=== PATIENT | female | born 2000 | race Caucasian/White ===

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

== ENCOUNTER 2022-03-14 14:06 | Emergency (ER) | payer OTHER ==
[2022-03-14] MEDS ORDERED: traMADol 50 MG STARTER PACK 3 TAB BTL PO STA (16:07)
--- NOTE | 2022-03-14 16:08 | ED ---
General Adult HPI - General Chief complaint: ENT Stated complaint: Mouth injury Time Seen by Provider: 03/14/22 15:40 Source: patient, RN notes reviewed Mode of arrival: ambulatory Limitations: no limitations - History of Present Illness Initial comments: Patient is a pleasant 21-year-old female presenting to the emergency department with concern with scratch to the top of her mouth. Incident occurred 2 days ago. Patient was eating hard boiled eggs and got something stuck. Patient did use her fork and scratched the top of her mouth. Patient has had discomfort since that time. There may be slight improvement. No other area of injury or concern. Patient states her teeth themselves do not hurt. - Related Data Home Medications Medication Instructions Recorded Confirmed Baclofen 5 mg PO ONCE 01/18/19 01/18/19 Omeprazole 40 mg PO ONCE 01/18/19 01/18/19 Previous Rx's Medication Instructions Recorded Sulfamethox-Tmp 800-160Mg [Bactrim 1 each PO Q12HR #14 tab 01/18/19 Ds] Amoxicillin 875 mg PO Q12HR #20 tablet 06/28/19 Cephalexin [Keflex] 500 mg PO Q6HR 10 Days #40 cap 06/18/20 Sulfamethox-Tmp 800-160Mg [Bactrim 1 tab PO Q12HR 10 Days #20 tab 06/18/20 DS 800-160 mg] Amoxicillin 500 mg PO Q8H #21 capsule 03/14/22 Allergies Allergy/AdvReac Type Severity Reaction Status Date / Time No Known Allergies Allergy Verified 06/18/20 20:50 Review of Systems ROS Statement: Those systems with pertinent positive or pertinent negative responses have been documented in the HPI. ROS Other: All systems not noted in ROS Statement are negative. Constitutional: Denies: fever, chills Eyes: Denies: eye pain ENT: Reports: as per HPI Respiratory: Denies: cough, dyspnea Cardiovascular: Denies: palpitations Endocrine: Denies: fatigue Gastrointestinal: Denies: abdominal pain Genitourinary: Denies: dysuria Past Medical History Past Medical History: No Reported History History of Any Multi-Drug Resistant Organisms: None Reported Past Surgical History: No Surgical Hx Reported Past Psychological History: No Psychological Hx Reported Smoking Status: Never smoker Past Alcohol Use History: None Reported Past Drug Use History: None Reported General Exam Limitations: no limitations General appearance: alert, in no apparent distress Head exam: Present: atraumatic Eye exam: Present: normal appearance ENT exam: Present: other (Patient does have approximately 2 cm abrasion to the left side of the hard palate. Otherwise no swelling or erythema.) Neck exam: Present: normal inspection Respiratory exam: Present: normal lung sounds bilaterally Cardiovascular Exam: Present: regular rate, normal rhythm Neurological exam: Present: normal gait Psychiatric exam: Present: normal affect, normal mood Skin exam: Present: normal color Disposition Clinical Impression: Abrasion of oral cavity Disposition: HOME SELF-CARE Condition: Stable Instructions (If sedation given, give patient instructions): Abrasion (ED) Additional Instructions: Every 2 hours perform salt water rinse and spit. Please follow-up with primary care physician in the next couple days for recheck. Return for increased pain, swelling, difficult to breathing, not tolerating fluids, worsening symptoms or other concerns. Prescription has been sent to pharmacy. Prescriptions: Amoxicillin 500 mg PO Q8H #21 capsule Is patient prescribed a controlled substance at d/c from ED?: No Referrals: Bridgette Collado MD [Primary Care Provider] - 1-2 days Time of Disposition: 16:06
[2022-03-14 16:29] VITALS: BP 135/88; PULSE 78; RESP 16; TEMP 98.2
== END 2022-03-14 16:45 | disposition home or self-care (01) ==
LOC: EC 14:06
DX: S00.512A Abrasion of oral cavity, initial encounter (principal); W26.8XXA Contact with other sharp object(s), not elsewhere classified, initial encounter
CPT/HCPCS: 99283

== ENCOUNTER 2022-03-15 23:56 | Emergency (ER) | payer OTHER ==
[2022-03-16 00:08] VITALS: BP 130/84; PULSE 100; RESP 20; TEMP 98.8
[2022-03-16] MEDS ORDERED: SODIUM CHLORIDE 0.9% 1,000 ML IV STA (01:47)
[2022-03-16] MEDS ORDERED: diphenhydrAMINE 50 MG/ML 1 ML VIAL IVP STA (01:47)
[2022-03-16] MEDS ORDERED: KETOROLAC 15 MG/ML 1 ML VIAL IVP STA ×2 (01:47→04:59)
--- NOTE | 2022-03-16 01:52 | ED ---
General Adult HPI - General Chief complaint: Headache Stated complaint: Headache Time Seen by Provider: 03/16/22 01:40 Source: patient, family (sister), RN notes reviewed, old records reviewed Mode of arrival: ambulatory Limitations: no limitations - History of Present Illness Initial comments: 21-year-old female presents to the emergency room with her sister complaining of left-sided headache for the past 2 days. Patient states that the headache occurred when she was talking to her counselor 2 days ago. She has not taken any Tylenol or Motrin. She has not had headaches like this in the past. She denies any fevers, no nausea vomiting or diarrhea. No visual changes -: days(s) (2) Location: head (left sided) Radiation: non-radiation Severity scale (1-10): 10 Quality: aching, constant Consistency: constant Improves with: none Worsens with: none Associated Symptoms: denies other symptoms Treatments Prior to Arrival: none - Related Data Home Medications Medication Instructions Recorded Confirmed Baclofen 5 mg PO ONCE 01/18/19 01/18/19 Omeprazole 40 mg PO ONCE 01/18/19 01/18/19 Previous Rx's Medication Instructions Recorded Sulfamethox-Tmp 800-160Mg [Bactrim 1 each PO Q12HR #14 tab 01/18/19 Ds] Amoxicillin 875 mg PO Q12HR #20 tablet 06/28/19 Cephalexin [Keflex] 500 mg PO Q6HR 10 Days #40 cap 06/18/20 Sulfamethox-Tmp 800-160Mg [Bactrim 1 tab PO Q12HR 10 Days #20 tab 06/18/20 DS 800-160 mg] Amoxicillin 500 mg PO Q8H #21 capsule 03/14/22 Allergies Allergy/AdvReac Type Severity Reaction Status Date / Time No Known Allergies Allergy Verified 03/16/22 00:08 Review of Systems ROS Statement: Those systems with pertinent positive or pertinent negative responses have been documented in the HPI. ROS Other: All systems not noted in ROS Statement are negative. Past Medical History Past Medical History: No Reported History History of Any Multi-Drug Resistant Organisms: None Reported Past Surgical History: No Surgical Hx Reported Past Psychological History: Anxiety, Depression Smoking Status: Never smoker Past Alcohol Use History: None Reported Past Drug Use History: None Reported General Exam Limitations: no limitations General appearance: alert, in no apparent distress Head exam: Present: atraumatic, normocephalic, normal inspection Eye exam: Present: normal appearance, PERRL, EOMI. Absent: scleral icterus, conjunctival injection, nystagmus, periorbital swelling, periorbital tenderness Pupils: Present: normal accommodation ENT exam: Present: normal exam, normal oropharynx, mucous membranes moist Neck exam: Present: normal inspection, tenderness, full ROM. Absent: meningismus, lymphadenopathy Respiratory exam: Present: normal lung sounds bilaterally. Absent: respiratory distress, accessory muscle use Cardiovascular Exam: Present: regular rate, normal rhythm, normal heart sounds GI/Abdominal exam: Present: soft. Absent: distended, tenderness Neurological exam: Present: alert, oriented X3, CN II-XII intact Expanded Patient oriented to: Present: person, place, time Speech: Present: fluid speech Eye Response: (4) open spontaneously Motor Response: (6) obeys commands Verbal Response: (5) oriented Brandin Total: 15 Psychiatric exam: Present: normal affect, normal mood Skin exam: Present: warm, dry, normal color. Absent: cyanosis, diaphoretic, petechiae, pallor Course Vital Signs 03/16/22 00:05 Temperature 98.8 F Pulse Rate 100 Respiratory 20 Rate Blood Pressure 130/84 O2 Sat by Pulse 97 Oximetry Medical Decision Making - Medical Decision Making 21-year-old female presents tearful with complaints of left-sided headache for 2 days. She denies any visual disturbances. No fevers. No focal neurological deficits. She was given IV fluids, Toradol and Benadryl with relief of her headache. She was directed to follow up with her primary care doctor next week, Tylenol and or Motrin as needed for pain. Patient and her sister are agreeable to this plan of care. Case discussed with Dr. Marina Disposition Clinical Impression: Headache Disposition: HOME SELF-CARE Condition: Good Instructions (If sedation given, give patient instructions): Acute Headache (ED) Additional Instructions: Take Tylenol and/or Motrin as needed for headaches. You can also try Benadryl 25-50 mg every 6-8 hours. Increase your fluid intake and follow-up with your primary care doctor next week. Return to the emergency room with any new or concerning symptoms including vision changes, fevers or persistent nausea vomiting. Is patient prescribed a controlled substance at d/c from ED?: No Referrals: Bridgette Collado MD [Primary Care Provider] - 1-2 days
[2022-03-16 04:41] LABS: Amorphous Sediment,Urine Occasional /hpf; Appearance,Urine Cloudy (Clear); Bilirubin,Urine Negative (Negative); Blood,Urine Large (Negative); Color,Urine Red; Glucose,Urine (UA) Negative (Negative); Hyaline Casts,Urine 15 /lpf (0-2); Ketones,Urine Negative (Negative); Leukocyte Esterase,Urine Large (Negative); Mucus,Urine Rare /hpf; Nitrite,Urine Negative (Negative); Protein,Urine 1+ (Negative); RBC,Urine >182 /hpf (0-5); Specific Gravity,Urine 1.017 (1.001-1.035); Squamous Epithelial Cell,Urine 9 /hpf (0-4); Urobilinogen,Urine <2.0 mg/dL (<2.0); WBC,Urine >182 /hpf (0-5)
[2022-03-16] MEDS ORDERED: SULFAMETHOX-TMP 800-160MG 1 EACH TAB PO STA (04:51)
[2022-03-18 14:46] LABS: C. trachomatis,PCR Negative (Neg,Equiv); Chlamydia trachomatis Source Urine; N. gonorrhoeae,PCR Negative (Neg,Equiv); Neisseria Source Urine
== END 2022-03-16 05:19 | disposition home or self-care (01) ==
LOC: EC 23:56
DX: R51.9 Headache, unspecified (principal)
CPT/HCPCS: 81001; 81025; 87491; 87591; 87086; 99284; 96374; 96375; 96376; 96361; J1200; J1885

== ENCOUNTER → 2022-06-14 | Outpatient (CLI) | payer OTHER ==
--- NOTE | 2022-06-15 11:42 | XR ---
Lumbar spine and thoracic spine HISTORY: M 25.69, pain 3 views of the lumbar spine and 3 views of the thoracic spine Bone mineralization, joint spaces and alignment are maintained. 6 nonrib-bearing vertebral bodies are present. Suspect is lumbarized S1. Some loss of disc height is present at S1-S2. Thoracic and lumba r vertebral bodies show preserved height. There is a slight spinal curvature in the thoracic spine. IMPRESSION: Mild spinal curvature. Loss of disc height as described may be indicative of degenerative disc disease, MRI may be of benefit.
--- NOTE | 2022-06-15 11:44 | XR ---
Right hip HISTORY: Pain 2 views of the right hand Bone mineralization, joint spaces and alignment are maintained IMPRESSION:
== END | disposition home or self-care (01) ==
LOC: RADXRMAIN 15:32
PROVIDERS: ATTEND Family Medicine
DX: M51.36 Other intervertebral disc degeneration, lumbar region (principal); M25.69 Stiffness of other specified joint, not elsewhere classified; R29.3 Abnormal posture
CPT/HCPCS: 72070; 72100; 73502

== ENCOUNTER → 2022-07-19 | Outpatient (CLI) | payer OTHER ==
--- NOTE | 2022-07-19 08:43 | MR ---
EXAMINATION TYPE: MR lumbar spine wo con DATE OF EXAM: 07/19/2022 COMPARISON: Lumbar spine x-ray June 14, 2022 HISTORY: Mid low back pain into buttocks and thighs. Scoliosis. TECHNIQUE: Multiplanar, multisequence imaging of the lumbar spine is performed without IV contrast. FINDINGS: Plain film correlation shows transitional L6 type vertebra. Sagittal images of the lumbar s pine show vertebral body heights and alignment to appear satisfactory. The intervertebral discs demon strate normal heights and hydration. The conus medullaris is normal in position and signal ending mi d L1 level. The bone marrow signal intensity is within normal limits. Axial images show no focal significant disc herniation or facet degenerative change at any lumbar lev el. There is no spinal canal stenosis, neural foraminal narrowing, or evidence of nerve root comprom ise. Paraspinal muscle bulk is maintained. IMPRESSION: Transitional-type vertebra at lumbosacral junction which is normal variant. No significan t disc herniation. No spondylolisthesis or scoliosis identified.
== END | disposition home or self-care (01) ==
LOC: RADMRIMAIN 07:02
PROVIDERS: ATTEND Family Medicine
DX: M51.9 Unspecified thoracic, thoracolumbar and lumbosacral intervertebral disc disorder (principal); M43.9 Deforming dorsopathy, unspecified
CPT/HCPCS: 72148

== ENCOUNTER → 2022-11-20 | Outpatient (CLI) | payer OTHER ==
--- NOTE | 2022-11-20 15:38 | US ---
EXAMINATION TYPE: US thyroid st tissue head/neck DATE OF EXAM: 11/20/2022 COMPARISON: NONE CLINICAL HISTORY: R22.1 NECK FULLNESS. doctor felt fullness in neck GLAND SIZE: Right Lobe: 4.1 x 1.3 x 1.7 cm Overall Parenchyma: homogenous Left Lobe: 5.0 x 1.3 x 1.3 cm Overall Parenchyma: homogeneous Isthmus Thickness: 0.2 cm NODULES RIGHT: # of nodules measured on right: 0 LEFT: # of nodules measured on left: 0 ISTHMUS: # of nodules measured in the isthmus: 0 Bilateral neck scanned, no evidence of lymphadenopathy. IMPRESSION: No discrete abnormality appreciated. 2017 ACR TI-RADS LEVEL: *Highest TI-RADS level nodule reported
== END | disposition home or self-care (01) ==
LOC: RADUSWWP 13:51
PROVIDERS: ATTEND Family Medicine
DX: E04.1 Nontoxic single thyroid nodule (principal)
CPT/HCPCS: 76536

== ENCOUNTER → 2023-04-11 | Outpatient (CLI) | payer OTHER ==
--- NOTE | 2023-04-11 15:51 | XR ---
EXAMINATION TYPE: XR chest 2V DATE OF EXAM: 04/11/2023 COMPARISON: NONE HISTORY: Chest pain TECHNIQUE: Frontal and lateral views of the chest are obtained. FINDINGS: There is no focal air space opacity. No evidence for pneumothorax. No pleural effusion. The cardiac silhouette size is within normal limits. The osseous structures are grossly intact. IMPRESSION: 1. No acute cardiopulmonary process.
== END | disposition home or self-care (01) ==
LOC: RADXRMAIN 14:03
PROVIDERS: ATTEND Family Medicine
DX: R07.89 Other chest pain (principal)
CPT/HCPCS: 71046

== ENCOUNTER → 2023-04-25 | Outpatient (CLI) | payer OTHER ==
--- NOTE | 2023-04-25 14:02 | USB ---
Technique: Method: Whole Breast Handheld. Findings: The whole breast of the left breast, the axilla of the left breast and the retroareolar of the left breast were scanned. Imaged: Ultrasound imaging of: All 4 quadrants, the retroareolar region and axilla. No finding to correlate patient's pain. No evidence for organizing fluid collection or mass. Overall Assessment: Negative, BI-RAD 1 Management: Screening Mammogram of both breasts at age 42. A clinical breast exam by your physician is recommended on an annual basis and results should be correlated with mammographic findings. This exam should not preclude additional follow-up of suspicious palpable abnormalities. Results were given to the patient verbally at the time of exam. Electronically signed and approved by: Keyur Rogers DO
== END | disposition home or self-care (01) ==
LOC: RADUSWWP 12:34
PROVIDERS: ATTEND Family Medicine
DX: N64.4 Mastodynia (principal)

== ENCOUNTER → 2023-11-14 | Outpatient (CLI) | payer OTHER ==
--- NOTE | 2023-11-25 14:26 | USB ---
Reason for Exam: Clinical finding. Technique: Method: Targeted. Findings: The lower section of the breast of the left breast, the axilla of the left breast and the retroareolar of the left breast were scanned. Targeted ultrasound inferior left breast 5:00 to 7:00 including scanning of the subareolar region and axilla. Patient's 6:00 palpable site, no solid or cystic lesion. Some scattered dense tissue is present. There is no axillary lymphadenopathy or duct ectasia.. Overall Assessment: Negative, BI-RAD 1 Management: Screening Mammogram of both breasts at age 42. Unless there is an indication to start sooner. Further clinical management of any suspicious palpable areas. A clinical breast exam by your physician is recommended on an annual basis and results should be correlated with mammographic findings. This exam should not preclude additional follow-up of suspicious palpable abnormalities. Results were given to the patient verbally at the time of exam. Electronically signed and approved by: Sj Leos M.D. Radiologist
== END | disposition home or self-care (01) ==
LOC: RADUSWWP 12:11
PROVIDERS: ATTEND Family Medicine
DX: N64.4 Mastodynia (principal)

== ENCOUNTER → 2023-12-18 | Outpatient (CLI) | payer OTHER ==
--- NOTE | 2023-12-18 12:05 | P.GSCN ---
History of Present Illness Consult date: 12/18/23 Reason for Consult: left breast pain Requesting physician: Bridgette Collado History of present illness: Mary is a 23 year old female with a complaint of breast pain. She had a left breast ultrasound on 11-14-23 which was BIRAD 1. She was complaining of pain in her left breast. It is located inferior to the aerola. It is painful with palpation. It is 3 on a scale of 1-10. It is not constant. It does not affect her daily living. She does feel some fullness in the area of the pain. It does not change with her period. She had not had any surgery on her breast. She not complaining of any nipple discharge or skin changes. She has not noted any recent trauma or infection in her breast. Caffeine: diet coke daily nicotine: none chocolate: daily BCP: none hormones: none Family History: maternal aunt: breast cancer maternal grandmother: cancer ? type mother: ovarian cancer Hormonal History: menarche: 14 G0 not sexually active periods irregular Surgical History: none Medical History: Scoliosis and degenerative disc disease Social History: Nicotine: Negative Alcohol: Negative Drugs: Negative Review of Systems - Constitutional Denies fever, Denies weight loss - EENT Eyes: denies blurred vision Ears: bilateral: tinnitus, deny: decreased hearing Ears, nose, mouth and throat: Reports headache, Denies dysphagia - Breasts bilateral: as per HPI - Cardiovascular Denies chest pain, Denies shortness of breath - Respiratory Denies cough, Denies 7 - Gastrointestinal Reports as per HPI - Genitourinary Genitourinary: Denies dysuria, Denies hematuria Menstruation: Reports cycle variable - Musculoskeletal Reports as per HPI - Integumentary Reports pruritus, Denies unusual bruising - Neurological Denies headaches, Denies syncope - Psychiatric Reports anxiety, Reports depression - Endocrine Reports as per HPI - Hematologic/Lymphatic Denies easy bleeding, Denies easy bruising - Allergic/Immunologic Reports as per HPI Past Medical History Past Medical History: No Reported History History of Any Multi-Drug Resistant Organisms: None Reported Past Surgical History: No Surgical Hx Reported - Sexual Orientation/Gender Identity What was your sex assigned at ?: Female Preferred Pronoun: She/Her/Hers How would you describe your gender identity?: Woman Do you think of your sexual orientation as: Bisexual Past Psychological History: Anxiety, Depression Smoking Status: Never smoker Past Alcohol Use History: None Reported Past Drug Use History: None Reported Medications and Allergies Home Medications Medication Instructions Recorded Confirmed Type No Known Home Medications 12/18/23 12/18/23 History Allergies Allergy/AdvReac Type Severity Reaction Status Date / Time No Known Allergies Allergy Unverified 12/18/23 12:01 Surgical - Exam - General moderate distress - Eyes normal ocular movement - Neck trachea midline - Respiratory normal respiratory effort, clear to auscultation - Cardiovascular Rhythm: regular Heart Sounds: normal: S1, S2 - Abdomen Abdomen: soft, non tender, no guarding, no rigid, no rebound - Integumentary normal turgor - Neurologic no disoriented, no combative - Musculoskeletal normal gait - Psychiatric oriented to time, oriented to person, oriented to place, speech is normal, memory intact Breast Exam: BRA: medium sports bra Inspection: bilateral grade 2 ptosis Palpation: right breast: Multi positional exam dense breast no dominant masses or nodules of concern Right axilla: Shotty adenopathy Left breast: Multi positional exam dense breast, at the 6 o'clock position near the areola there is some increased density which is not symmetric to the other side Left axilla: No adenopathy of concern Results Ultrasound results reviewed Assessment and Plan Assessment: Impression: Mastodynia greatest in the left breast Slight nodularity increased over that on the right side at the 6 o'clock position near the areola on the left Anxiety Plan: Recommend lifestyle modification/stop caffeine intake FNA area of nodularity left breast this will be scheduled in the near future book recommended /solving the mystery of breast pain bilateral mammogram at 42 CC: Dr. Norm Edge
[2023-12-18 12:11] VITALS: BP 129/91; PULSE 59; RESP 17; TEMP 98.3
== END ==
LOC: WWCWWP 10:38
PROVIDERS: ATTEND Surgery
DX: N64.4 Mastodynia (principal); F41.9 Anxiety disorder, unspecified

== ENCOUNTER → 2024-01-21 | Outpatient (CLI) | payer OTHER ==
--- NOTE | 2024-01-21 08:41 | P.CON ---
Consult Note - . Consult date: 01/21/24 Assessment/Plan:: Mary is a 23 year old female with some increased nodularity of the 6:00 position of the left breast, she is going to have an FNA of this site. Following informed consent, The area of concern at the 6 o'clock position of the left breast was prepped using alcohol A 22-gauge needle on a 12cc syringe was inserted into the area of concern and multiple passes were made with negative pressure on the syringe tissue was obtained the tissue was processed and sent to cytology The patient tolerated the procedure in stable condition. Plan: Follow-up 2 weeks
[2024-01-21 08:47] VITALS: BP 131/86; PULSE 97; RESP 17; TEMP 98.3
== END ==
LOC: WWCBREAST 08:14
PROVIDERS: ATTEND Surgery
DX: N63.25 Unspecified lump in the left breast, overlapping quadrants (principal)

== ENCOUNTER → 2024-02-12 | Outpatient (CLI) | payer OTHER ==
--- NOTE | 2024-02-12 13:26 | P.PN ---
Subjective Progress Note Date: 02/12/24 Principal diagnosis: fibrocystic breast changes Mary is a 23 year old status post left breast FNA on 01-21-24 at the 6 o'clock position of the left breast. Her pathology was benign. She tolerated the procedure without difficulty. She had been complaining of some increased nodularity at that site. Additionally an ultrasound of that area was performed on 11-14-2023 which was benign BI-RADS 1. Objective - Constitutional General appearance: Present: cooperative - EENT ENT: Present: hearing grossly normal - Respiratory Respiratory: bilateral: CTA - Cardiovascular Heart sounds: normal: S1, S2 - Integumentary Integumentary Comment(s): Biopsy site left breast no evidence of infection or hematoma, some mild resolving ecchymosis - Musculoskeletal Musculoskeletal: Present: gait normal - Psychiatric Psychiatric: Present: A&O x's 3, appropriate affect, intact judgment & insight Assessment and Plan Assessment: Impression: Fibrocystic breast changes Anxiety/we have reassured the patient on her visit today that radiographically nor physical exam or FNA showed anything of concern, however we will keep close surveillance, and if she notes anything of concern she should call us immediately Plan: Follow-up in 6 months with a left breast ultrasound Patient to follow-up sooner any questions or concerns CC: Agutso Mehta
[2024-02-12 13:58] VITALS: BP 128/88; PULSE 71; RESP 17; TEMP 97.9
== END ==
LOC: WWCWWP 12:27
PROVIDERS: ATTEND Surgery
DX: R92.8 Other abnormal and inconclusive findings on diagnostic imaging of breast (principal); N63.25 Unspecified lump in the left breast, overlapping quadrants; N60.19 Diffuse cystic mastopathy of unspecified breast; F41.9 Anxiety disorder, unspecified; Z98.890 Other specified postprocedural states

== ENCOUNTER 2024-06-07 06:41 | Day surgery (SDC) | payer OTHER ==
[2024-06-02 09:37] VITALS: BMI 22.5
[2024-06-07 07:13] VITALS: BP 146/73; PULSE 97; RESP 18; TEMP 98.1
[2024-06-07] MEDS: SODIUM CHLORIDE 0.9% 1,000 ML IV SCH (07:13)
[2024-06-07] MEDS: IV FLUID CONTINUATION 1,000 ML IV ONE (07:14)
--- NOTE | 2024-06-07 15:26 | P.EPPROC ---
- EP Procedure Note Electrophysiology Procedure Note: Diagnosis Recurrent syncope Baseline twelve-lead EKG shows sinus rhythm normal DE narrow QRS normal ST segments normal QT interval Subtle early repolarization abnormality of 0.5 mm, normal variant Tilt table test per protocol Baseline blood pressure 112/78 mmHg, baseline heart rate 60 beats a minute Patient was tilted upright from angle of 70 degrees per protocol No significant change in heart rate or blood pressure Patient was laid supine the end of the procedure Impression Normal twelve-lead EKG Normal heart rate and blood pressure response to upright tilting
== END 2024-06-07 10:18 | disposition home or self-care (01) ==
LOC: CATHEP 06:41
PROVIDERS: ATTEND Internal Medicine Clinical Cardiac Electrophysiology
DX: R55 Syncope and collapse (principal)
CPT/HCPCS: 81025; 93660

== ENCOUNTER → 2024-07-26 | Outpatient (CLI) | payer OTHER ==
--- NOTE | 2024-07-26 10:11 | USB ---
Reason for Exam: Clinical finding. Technique: Method: Targeted. Prior Study Comparison: 11/14/2023 Left US breast limited , [facility]. Findings: The area of palpable concern of the left breast, the lower section of the breast of the left breast, the axilla of the left breast and the retroareolar of the left breast were scanned. Targeted ultrasound inferior aspect of the left breast 4:00 to 8:00 position including scanning of the subareolar region and axilla. Scattered dense tissue is present. No solid or cystic lesion or axillary lymphadenopathy. Particular attention to the patient's 6:00 palpable site area of concern. Overall Assessment: Benign, BI-RAD 2 Management: Screening Mammogram of both breasts at age 42. Unless there is a clinical indication to start sooner. A clinical breast exam by your physician is recommended on an annual basis and results should be correlated with mammographic findings. This exam should not preclude additional follow-up of suspicious palpable abnormalities. Results were given to the patient verbally at the time of exam. [facility], , 07/26/2024 10:08 AM. Electronically signed and approved by: Sj Leos M.D. Radiologist
== END | disposition home or self-care (01) ==
LOC: RADUSWWP 09:40
PROVIDERS: ATTEND Surgery
DX: N63.0 Unspecified lump in unspecified breast (principal)

== ENCOUNTER → 2024-08-05 | Outpatient (CLI) | payer OTHER ==
[2024-08-05 10:59] VITALS: BP 115/80; PULSE 84; RESP 17; TEMP 97.6
--- NOTE | 2024-08-05 11:03 | P.PN ---
Subjective Progress Note Date: 08/05/24 She states her mother had ovarian cancer at 10, there is no tissue diagnosis we know of. She did not have any chemotherapy, ? radiation therapy. No genetic testing has been done. Original Note: History of Present Illness Consult date: 08-05-24 Reason for Consult: left breast pain Requesting physician: Bridgette Collado History of present illness: Mary is a 24 year old female with a complaint of breast pain. She had a left breast ultrasound on 11-14-23 which was BIRAD 1. She was complaining of pain in her left breast. It is located inferior to the aerola. It is painful with p alpation. It is 3 on a scale of 1-10. It is not constant. It does not affect her daily living. She does feel some fullness in the area of the pain. It does not change with her period. She had not had any surgery on her breast. She not complaining of any nipple discharge or skin changes. She has not noted any recent trauma or infection in her breast. FNA 6:00 area of left breast done on 01-21-24 benign; left breast ultrasound 07-26-24 BIRAD 2; She continues to have left sided breast pain at times with palpation Caffeine: diet coke daily nicotine: none chocolate: daily BCP: none hormones: none Family History: maternal aunt: breast cancer maternal grandmother: cancer ? type mother: ovarian cancer Hormonal History: menarche: 14 G0 not sexually active periods irregular Surgical History: none Medical History: Scoliosis and degenerative disc disease Social History: Nicotine: Negative Alcohol: Negative Drugs: Negative Review of Systems - Constitutional Denies fever, Denies weight loss - EENT Eyes: denies blurred vision Ears: bilateral: tinnitus, deny: decreased hearing Ears, nose, mouth and throat: Reports headache, Denies dysphagia - Breasts bilateral: as per HPI - Cardiovascular Denies chest pain, Denies shortness of breath - Respiratory Denies cough - Gastrointestinal Reports as per HPI - Genitourinary Genitourinary: Denies dysuria, Denies hematuria Menstruation: Reports cycle variable - Musculoskeletal Reports as per HPI - Integumentary Reports pruritus, Denies unusual bruising - Neurological Denies headaches, Denies syncope - Psychiatric Reports anxiety, Reports depression - Endocrine Reports as per HPI - Hematologic/Lymphatic Denies easy bleeding, Denies easy bruising - Allergic/Immunologic Reports as per HPI Past Medical History Past Medical History: No Reported History History of Any Multi-Drug Resistant Organisms: None Reported Past Surgical History: No Surgical Hx Reported - Sexual Orientation/Gender Identity What was your sex assigned at ?: Female Preferred Pronoun: She/Her/Hers How would you describe your gender identity?: Woman Do you think of your sexual orientation as: Bisexual Past Psychological History: Anxiety, Depression Smoking Status: Never smoker Past Alcohol Use History: None Reported Past Drug Use History: None Reported Medications and Allergies Home Medications Medication Instructions Recorded Confirmed Type No Known Home Medications 12/18/23 12/18/23 History Allergies Allergy/AdvReac Type Severity Reaction Status Date / Time No Known Allergies Allergy Unverified 12/18/23 12:01 Objective - Constitutional General appearance: Present: cooperative - EENT Eyes: Present: EOMI ENT: Present: hearing grossly normal - Neck Neck: Present: normal ROM - Respiratory Respiratory: bilateral: CTA - Cardiovascular Rhythm: regular Heart sounds: normal: S1, S2 - Additional findings Additional findings: Breast Exam: BRA: medium sports bra Inspection: bilateral grade 2 ptosis Palpation: right breast: Multi positional exam dense breast no dominant masses or nodules of concern Right axilla: Shotty adenopathy Left breast: Multi positional exam dense breast Left axilla: No adenopathy of concern Assessment and Plan Assessment: Impression: Mastodynia greatest in the left breast Slight nodularity increased over that on the right side at the 6 o'clock position near the areola on the left FNA of site benign Anxiety Plan: Recommend lifestyle modification/stop caffeine intake FNA area of nodularity left breast done benign book recommended /solving the mystery of breast pain patient obtained and is going to read bilateral mammogram at follow up as needed CC: Dr. Norm Edge
== END ==
LOC: WWCWWP 10:45
PROVIDERS: ATTEND Surgery
DX: N64.4 Mastodynia (principal); N63.15 Unspecified lump in the right breast, overlapping quadrants; N63.25 Unspecified lump in the left breast, overlapping quadrants; F41.9 Anxiety disorder, unspecified; Z80.3 Family history of malignant neoplasm of breast

== ENCOUNTER → 2024-10-04 | Outpatient (CLI) | payer OTHER ==
--- NOTE | 2024-10-04 13:41 | USB ---
Reason for Exam: Clinical finding. Technique: Method: Targeted. Findings: The upper section of the breast of the left breast, the lower outer quadrant of the right breast, the axilla of both breasts and the retroareolar of both breasts were scanned. Targeted ultrasound bilaterally is performed. No suspicious solid or cystic masses are identified bilaterally. No concerning focal fluid collections are seen. Scanning of the bilateral axilla shows benign appearing subcentimeter bilateral lymph nodes. Bilateral subareolar regions are unremarkable. Overall Assessment: Negative, BI-RAD 1 Management: Screening Mammogram of both breasts at age 42. Manage patient's symptoms of pain clinically. A clinical breast exam by your physician is recommended on an annual basis and results should be correlated with mammographic findings. This exam should not preclude additional follow-up of suspicious palpable abnormalities. Results were given to the patient verbally at the time of exam. [facility], , 10/04/2024 1:39 PM. Electronically signed and approved by: Javon Kam M.D.
== END | disposition home or self-care (01) ==
LOC: RADMAMWWP 12:44
PROVIDERS: ATTEND Surgery
DX: N64.4 Mastodynia (principal)

== ENCOUNTER → 2025-02-04 | Outpatient (CLI) | payer OTHER ==
[2025-02-04 12:32] VITALS: BP 137/83; PULSE 76; RESP 16; TEMP 97.9
--- NOTE | 2025-02-04 12:39 | P.PN ---
Subjective Progress Note Date: 02/04/25 (]) Principal diagnosis: breast pain 10/08/24 Principal diagnosis: breast pain History of Present Illness 02-04-25 Reason for Consult: left breast pain Requesting physician: Bridgette Collado History of present illness: 08-05-24 Mary is a 24 year old female with a complaint of breast pain. She had a left breast ultrasound on 11-14-23 which was BIRAD 1. She was complaining of pain in her left breast. It is located inferior to the aerola. It is painful with palpation. It is 3 on a scale of 1-10. It is not constant. It does not affect her daily living. She does feel some fullness in the area of the pain. It does not change with her period. She had not had any surgery on her breast. She not complaining of any nipple discharge or skin changes. She has not noted any recent trauma or infection in her breast. FNA 6:00 area of left breast done on 01-21-24 benign; left breast ultrasound 07-26-24 BIRAD 2; She continues to have left sided breast pain at times with palpation 10-08-24 Bilateral breast ultrasound in 10 04 24 benign BI-RADS 2, this was personally interpreted. Ultrasound bilaterally was performed. No suspicious solid or cystic masses were identified. Patient has requested 3D mammography be performed. She complains that her left breast is feeling swollen. And she has bilateral breast discomfort but the left is greater than the right. The discomfort is not cyclical in nature. She is not complaining of any new lumps masses or nodules of concern or any lumps masses or nodules of concern in either breast. patient request 3D mammogram 02-04-25 Bilateral mammogram 10 21 24 BI-RADS 2 She is not complaining of any distinct new lumps masses or nodules of concern, however she does state that with her last menstrual period her breast felt swollen and the swelling has decreased at this time. Caffeine: diet coke daily; she has stopped drinking Diet Coke and decreased her caffeine intake overall nicotine: none chocolate: daily BCP: none hormones: none Family History: maternal aunt: breast cancer maternal grandmother: cancer ? type mother: ovarian cancer Julianne states her mother had ovarian cancer at 10, there is no tissue diagnosis we know of. She did not have any chemotherapy, ? radiation therapy. No genetic testing has been done Hormonal History: menarche: 14 G0 not sexually active periods irregular Surgical History: none Medical History: Scoliosis and degenerative disc disease Social History: Nicotine: Negative Alcohol: Negative Drugs: Negative Review of Systems - Constitutional Denies fever, Denies weight loss - EENT Eyes: denies blurred vision Ears: bilateral: tinnitus, deny: decreased hearing Ears, nose, mouth and throat: Reports headache, Denies dysphagia - Breasts bilateral: as per HPI - Cardiovascular Denies chest pain, Denies shortness of breath - Respiratory Denies cough - Gastrointestinal Reports as per HPI - Genitourinary Genitourinary: Denies dysuria, Denies hematuria Menstruation: Reports cycle variable - Musculoskeletal Reports as per HPI - Integumentary Reports pruritus, Denies unusual bruising - Neurological Denies headaches, Denies syncope - Psychiatric Reports anxiety, Reports depression - Endocrine Reports as per HPI - Hematologic/Lymphatic Denies easy bleeding, Denies easy bruising - Allergic/Immunologic Reports as per HPI Past Medical History Past Medical History: No Reported History History of Any Multi-Drug Resistant Organisms: None Reported Past Surgical History: No Surgical Hx Reported - Sexual Orientation/Gender Identity What was your sex assigned at ?: Female Preferred Pronoun: She/Her/Hers How would you describe your gender identity?: Woman Do you think of your sexual orientation as: Bisexual Past Psychological History: Anxiety, Depression Smoking Status: Never smoker Past Alcohol Use History: None Reported Past Drug Use History: None Reported Medications and Allergies Home Medications Medication Instructions Recorded Confirmed Type No Known Home Medications 12/18/23 12/18/23 History Allergies Allergy/AdvReac Type Severity Reaction Status Date / Time No Known Allergies Allergy Unverified 12/18/23 12:01 Objective - Constitutional General appearance: Present: cooperative - EENT Eyes: Present: EOMI ENT: Present: hearing grossly normal - Neck Neck: Present: normal ROM - Respiratory Respiratory: bilateral: CTA - Cardiovascular Rhythm: regular Heart sounds: normal: S1, S2 - Integumentary Integumentary: Present: normal turgor - Musculoskeletal Musculoskeletal: Present: gait normal - Psychiatric Psychiatric: Present: A&O x's 3, appropriate affect, intact judgment & insight - Additional findings Additional findings: Breast examination: Inspection: Bilateral grade 2 ptosis Palpation: Right breast: Multi positional exam no discrete dominant masses or nodules of concern Right axilla: No adenopathy of concern Left breast: Multi positional exam no dominant masses or nodules of concern Left axilla: No adenopathy of concern Assessment and Plan Assessment: Impression: Mastodynia Dense breast/fibrocystic breast changes Anxiety Plan: Recommend lifestyle modification/stop caffeine intake book recommended /solving the mystery of breast pain patient obtained and is going to read 3D mammogram patient is going to schedule this and follow up after this follow up in 1 year prim[employer] oil bilateral breast ultrasound in 1 year Follow-up sooner any questions or concerns CC: Dr. Norm Edge
== END ==
LOC: WWCWWP 12:15
PROVIDERS: ATTEND Surgery
DX: Z12.31 Encounter for screening mammogram for malignant neoplasm of breast (principal); N64.4 Mastodynia; N60.19 Diffuse cystic mastopathy of unspecified breast; F41.9 Anxiety disorder, unspecified